=== PATIENT | female | born 1995 | race Caucasian/White ===

== ENCOUNTER 2017-11-07 15:43 | Emergency (ER) | payer BC ==
[~2017-11-07] VITALS: Ht 170.1 cm; Wt 102.1 kg
[~2017-11-07 15:43] MED LIST: 'zithromax250 MG PO; ADVIL100 MG/5 M PO; AUGMENTIN ES-6050 ML PO; BACTRIM; CEPHALEXIN500 M1 PO; CLARITIN5 MG/5 ML PO; HYDROCODONE BIT1 T11 PO; NAPROSYN500 MG PO; PERCOCET 325 MG1 TA7 PO; PREDNISONE10 MG PO; TESSALON PERLE100 M1 PO; TYLENOL650 M1 PO; ULTRAM50 MG PO; VICODIN 5/500 505 MG
[2017-11-07 17:15] LABS: BASO % 0.4 % (0.0-1.0); EOS # 0.4 10*3/uL (0.0-0.4); EOS % 3.1 % (1.0-4.0); HEMATOCRIT 39.9 % (37.0-47.0); HEMOGLOBIN 12.9 g/dl (12.0-16.0); LYMPH # 1.7 10*3/uL (1.3-4.4); LYMPH % 14.9 % (27.0-41.0); MEAN CELL VOLUME 88.9 fl (81.0-99.0); MEAN CORPUSCULAR HGB 28.7 pg (27.0-31.0); MEAN CORPUSCULAR HGB CONC 32.3 g/dl (33.0-37.0); MEAN PLATELET VOLUME 10.9 fl (9.6-12.3); MONO # 0.7 10*3/uL (0.1-1.0); MONO % 6.4 % (3.0-9.0); NEUT # 8.4 10*3/uL (2.3-7.9); NEUT % 74.9 % (47.0-73.0); PLATELET COUNT AUTOMATED 345 10*3/uL (130-400); RED BLOOD COUNT 4.49 10*6/uL (4.10-5.10); RED CELL DISTRI WIDTH 12.9 % (0-14.5); WHITE BLOOD COUNT 11.2 10*3/uL (4.8-10.8)
[2017-11-07 17:29] LABS: ALBUMIN 3.3 gm/dl (3.1-4.5); ALKALINE PHOSPHATASE 112 U/L (45-117); BUN 7 mg/dl (7-24); CHLORIDE 106 mmol/L (98-107); CREATININE 0.53 mg/dL (0.55-1.02); POTASSIUM 3.5 mmol/L (3.5-5.1); SGOT/AST 16 IU/L (3-35); SGPT/ALT 29 U/L (12-78); SODIUM 139 mmol/L (136-145); TOTAL PROTEIN 7.7 gm/dL (6.4-8.2)
[2017-11-07] MEDS ORDERED: PREDNISONE20 M1 PO (19:09)
[2017-11-07] MEDS ORDERED: MUCINEX1200 M1 PO (19:09)
[2017-11-07] MEDS ORDERED: AMOXICILLIN500 M3 PO (19:09)
[2017-11-07] MEDS ORDERED: FLONASE ALLERG9.9 ML NAS (19:09)
== END 2017-11-07 19:25 | disposition home or self-care (01) ==
LOC: ED 15:43
PROVIDERS: Nurse Practitioner Family
DX: H66.93 Otitis media, unspecified, bilateral (principal); J20.9 Acute bronchitis, unspecified; J06.9 Acute upper respiratory infection, unspecified; F17.200 Nicotine dependence, unspecified, uncomplicated

== ENCOUNTER 2018-08-22 15:40 | Emergency (ER) | payer BC ==
[~2018-08-22] VITALS: Ht 172.7 cm; Wt 93.0 kg
[~2018-08-22 15:40] MED LIST changes: +AMOXICILLIN500 M3 PO; +FLONASE ALLERG9.9 ML NAS; +MUCINEX1200 M1 PO; +PREDNISONE20 M1 PO
[2018-08-22] MEDS ORDERED: PREDNISONE10 MG PO (16:22)
== END 2018-08-22 16:30 | disposition home or self-care (01) ==
LOC: ED 15:40
DX: L23.7 Allergic contact dermatitis due to plants, except food (principal); Z79.2 Long term (current) use of antibiotics; Z79.899 Other long term (current) drug therapy

== ENCOUNTER → 2019-04-08 | Outpatient (CLI) | payer BC | END | disposition home or self-care (01) | LOC: US 00:45 | DX: Z34.82 Encounter for supervision of other normal pregnancy, second trimester (principal); Z3A.15 15 weeks gestation of pregnancy ==

== ENCOUNTER → 2019-05-06 | Outpatient (CLI) | payer BC | END | disposition home or self-care (01) | LOC: US 14:40 | DX: O32.1XX0 Maternal care for breech presentation, not applicable or unspecified (principal); Z3A.19 19 weeks gestation of pregnancy ==

== ENCOUNTER → 2019-05-19 | Outpatient (CLI) | payer BC, OTHER | END | disposition home or self-care (01) | LOC: US 09:16 | DX: Z34.02 Encounter for supervision of normal first pregnancy, second trimester (principal); Z3A.20 20 weeks gestation of pregnancy ==

== ENCOUNTER → 2019-07-07 | Outpatient (CLI) | payer BC, OTHER | END | disposition home or self-care (01) | LOC: US 16:37 | DX: M79.89 Other specified soft tissue disorders (principal); Z34.83 Encounter for supervision of other normal pregnancy, third trimester; Z3A.28 28 weeks gestation of pregnancy ==

== ENCOUNTER → 2019-08-02 | Outpatient (CLI) | payer BC, OTHER | END | disposition home or self-care (01) | LOC: US 11:25 | DX: O26.893 Other specified pregnancy related conditions, third trimester (principal); R60.0 Localized edema; Z3A.31 31 weeks gestation of pregnancy ==

== ENCOUNTER 2023-03-28 18:41 | Inpatient (IN) | payer OTHER ==
[~2023-03-28] VITALS: Ht 170.1 cm; Wt 98.0 kg
[2023-03-28 18:53] VITALS: BP 138/78
[2023-03-28] MEDS ORDERED: SODIUM CHLORIDE 0.9% 1,000 ML IV ONE (20:15)
[2023-03-28 20:32] LABS: BASO # 0.1 10*3/uL (0.0-0.1); BASO % 0.4 % (0.0-1.0); EOS # 0.2 10*3/uL (0.0-0.4); EOS % 1.7 % (1.0-4.0); HEMATOCRIT 43.6 % (37.0-47.0); LYMPH # 3.4 10*3/uL (1.3-4.4); LYMPH % 23.4 % (27.0-41.0); MEAN CELL VOLUME 88.1 fl (81.0-99.0); MEAN CORPUSCULAR HGB 29.1 pg (27.0-31.0); MONO # 0.8 10*3/uL (0.1-1.0); MONO % 5.8 % (3.0-9.0); NEUT # 9.9 10*3/uL (2.3-7.9); NEUT % 68.5 % (47.0-73.0); PLATELET COUNT AUTOMATED 375 10*3/uL (130-400); RED BLOOD COUNT 4.95 10*6/uL (4.10-5.10); RED CELL DISTRI WIDTH 12.3 % (0-14.5); WHITE BLOOD COUNT 14.5 10*3/uL (4.8-10.8)
[2023-03-28 20:53] LABS: ALKALINE PHOSPHATASE 122 U/L (46-116); BUN 7 mg/dl (9-23); CHLORIDE 100 mmol/L (98-107); POTASSIUM 3.6 mmol/L (3.4-5.1); SGPT/ALT 11 U/L (5-49); TOTAL PROTEIN 7.5 gm/dL (6.0-8.0)
[2023-03-28 22:20] LABS: BILIRUBIN Negative (Negative); BLOOD Negative (Negative); CLARITY Clear (Clear); COLOR Yellow (Yellow); GLUCOSE 3+ (Negative); KETONE 4+ (Negative); LEUKO ESTERASE Negative (Negative); NITRITE Negative (Negative); PH 5.5 (4.5-8.0); SPECIFIC GRAVITY >= 1.030 (1.001-1.030); UROBILINOGEN 0.2 E.U./dl (0.0-1.0)
[2023-03-28] MEDS ORDERED: INSULIN REGULAR, HUMAN 1 UNIT/0.01 ML IV ONE (22:25)
[2023-03-28 22:40] VITALS: BP 122/77
[2023-03-28 22:52] LABS: EPITHELIAL CELLS 31-40
[2023-03-28 22:53] LABS: RBC 31-40 rbc/hpf (0-2); WBC 16-20 wbc/hpf (0-5)
[2023-03-29] VITALS (7 sets, daily range): BP systolic 105–129; BP diastolic 61–85
[2023-03-29] MEDS ORDERED: INSULIN REGULAR, HUMAN 1 UNIT/0.01 ML IV ONE (01:00)
[2023-03-29] MEDS ORDERED: SODIUM CHLORIDE 0.9% 1,000 ML IV ONE ×2 (01:05→14:33)
[2023-03-29 03:32] LABS: BUN 7 mg/dl (9-23); CHLORIDE 104 mmol/L (98-107); POTASSIUM 3.5 mmol/L (3.4-5.1)
[2023-03-29] MEDS ORDERED: INSULIN REGULAR IN 0.9 % NACL 100 ML IV ONE (04:45)
[2023-03-29] MEDS ORDERED: METFORMIN HYDR500 MG PO (09:42)
[2023-03-29] MEDS ORDERED: POTASSIUM CHLORIDE 20 MEQ TAB PO PRN (10:15)
[2023-03-29] MEDS ORDERED: INSULIN REGULAR IN 0.9 % NACL 100 ML IV SCH (10:15)
[2023-03-29] MEDS ORDERED: POTASSIUM CHLORIDE 20 MEQ/100 ML BAG IV PRN (10:15)
[2023-03-29] MEDS ORDERED: SODIUM CHLORIDE 0.9% 1,000 ML IV SCH (14:15)
[2023-03-29 14:45] LABS: BUN 6 mg/dl (9-23); CHLORIDE 105 mmol/L (98-107); POTASSIUM 3.8 mmol/L (3.4-5.1)
[2023-03-29] MEDS ORDERED: Insulin Glargine, Recombinan 1 UNIT/0.01 ML SC SCH (17:10)
[2023-03-29] MEDS ORDERED: Ceftriaxone Sodium 2 GM in SYRINGE INFUSION 20 ML IV SCH (18:00)
[2023-03-29] MEDS ORDERED: DEXTROSE 5% SALINE 0.45% 1,000 ML IV SCH (18:25)
[2023-03-30] VITALS: BP 99/50
[2023-03-30 04:00] VITALS: BP 97/66
[2023-03-30] MEDS ORDERED: INSULIN REGULAR IN 0.9 % NACL 100 ML IV ONE (04:36)
[2023-03-30 06:31] LABS: BASO % 0.4 % (0.0-1.0); EOS # 0.2 10*3/uL (0.0-0.4); EOS % 2.3 % (1.0-4.0); HEMATOCRIT 39.8 % (37.0-47.0); LYMPH # 2.8 10*3/uL (1.3-4.4); LYMPH % 29.6 % (27.0-41.0); MEAN CELL VOLUME 88.6 fl (81.0-99.0); MEAN CORPUSCULAR HGB CONC 32.7 g/dl (33.0-37.0); MEAN PLATELET VOLUME 11.9 fl (9.6-12.3); MONO # 0.7 10*3/uL (0.1-1.0); MONO % 7.3 % (3.0-9.0); NEUT # 5.6 10*3/uL (2.3-7.9); PLATELET COUNT AUTOMATED 301 10*3/uL (130-400); RED BLOOD COUNT 4.49 10*6/uL (4.10-5.10); RED CELL DISTRI WIDTH 12.6 % (0-14.5); WHITE BLOOD COUNT 9.4 10*3/uL (4.8-10.8)
[2023-03-30 06:45] LABS: BUN 6 mg/dl (9-23); CHLORIDE 110 mmol/L (98-107); POTASSIUM 3.8 mmol/L (3.4-5.1)
[2023-03-30 08:00] VITALS: BP 114/75
[2023-03-30 12:00] VITALS: BP 126/78
[2023-03-30] MEDS ORDERED: DEXTROSE 10 % IN WATER 250 ML IV PRN (15:45)
[2023-03-30] MEDS ORDERED: INSULIN REGULAR, HUMAN 1 UNIT/0.01 ML SC SCH (16:00)
[2023-03-30 20:00] VITALS: BP 110/71
[2023-03-30 22:30] VITALS: BP 124/69
[2023-03-31] VITALS: BP 117/68
[2023-03-31 06:30] LABS: BUN 7 mg/dl (9-23); CHLORIDE 108 mmol/L (98-107); POTASSIUM 3.2 mmol/L (3.4-5.1)
[2023-03-31 08:00] VITALS: BP 112/80
[2023-03-31] MEDS ORDERED: POTASSIUM CHLORIDE 20 MEQ TAB PO ONE (12:05)
[2023-03-31] MEDS ORDERED: GLUCTESTSTRIP DEVI (12:12)
[2023-03-31] MEDS ORDERED: LANTUS SOL100 UNIT/1 SC (12:12)
[2023-03-31] MEDS ORDERED: Lantus SC (12:12)
[2023-03-31] MEDS ORDERED: AUTOPEN1 EACH SQ (12:12)
== END 2023-03-31 13:24 | disposition home or self-care (01) | DRG 420 ==
LOC: ED 18:41 → ICCU 03-29 04:44 → EDHOLD 03-29 04:44 → 4E 03-29 09:02 → ICCU 03-29 14:29
PROVIDERS: Emergency Medicine; ADMIT Internal Medicine; ATTEND Internal Medicine
DX: E11.10 Type 2 diabetes mellitus with ketoacidosis without coma (principal); N39.0 Urinary tract infection, site not specified; B95.4 Other streptococcus as the cause of diseases classified elsewhere; E66.9 Obesity, unspecified; Z68.33 Body mass index [BMI] 33.0-33.9, adult

== ENCOUNTER 2023-09-22 18:29 | Emergency (ER) | payer SELFPAY ==
[~2023-09-22] VITALS: Ht 167.6 cm; Wt 99.8 kg
[~2023-09-22 18:29] MED LIST changes: +AUTOPEN1 EACH SQ; +GLUCTESTSTRIP DEVI; +LANTUS SOL100 UNIT/1 SC; +Lantus SC; +METFORMIN HYDR500 MG PO
[2023-09-22 19:16] LABS: BASO # 0.1 10*3/uL (0.0-0.1); BASO % 0.6 % (0.0-1.0); EOS # 0.3 10*3/uL (0.0-0.4); LYMPH # 2.3 10*3/uL (1.3-4.4); LYMPH % 25.9 % (27.0-41.0); MEAN CORPUSCULAR HGB 28.6 pg (27.0-31.0); MEAN CORPUSCULAR HGB CONC 34.1 g/dl (33.0-37.0); MEAN PLATELET VOLUME 11.7 fl (9.6-12.3); MONO # 0.6 10*3/uL (0.1-1.0); MONO % 6.9 % (3.0-9.0); NEUT # 5.7 10*3/uL (2.3-7.9); NEUT % 63.2 % (47.0-73.0); PLATELET COUNT AUTOMATED 329 10*3/uL (130-400); RED BLOOD COUNT 5.24 10*6/uL (4.10-5.10); RED CELL DISTRI WIDTH 11.9 % (0-14.5)
[2023-09-22 19:45] LABS: BUN 7 mg/dl (9-23); CHLORIDE 98 mmol/L (98-107)
[2023-09-22] MEDS ORDERED: MAGNESIUM OXIDE 400 MG TAB PO ONE (19:55)
[2023-09-22] MEDS ORDERED: SODIUM CHLORIDE 0.9% 1,000 ML IV ONE ×2 (19:55)
[2023-09-22] MEDS ORDERED: INSULIN REGULAR, HUMAN 1 UNIT/0.01 ML IV ONE ×2 (19:55→22:15)
[2023-09-22 20:22] LABS: BILIRUBIN Negative (Negative); BLOOD Negative (Negative); CLARITY Cloudy (Clear); COLOR Yellow (Yellow); GLUCOSE 3+ (Negative); KETONE Trace (Negative); LEUKO ESTERASE Negative (Negative); NITRITE Negative (Negative); SPECIFIC GRAVITY >= 1.030 (1.001-1.030)
[2023-09-22 20:34] LABS: BACTERIA 2+
[2023-09-22] MEDS ORDERED: POTASSIUM CHLORIDE 20 MEQ TAB PO ONE (20:40)
== END 2023-09-22 23:39 | disposition home or self-care (01) ==
LOC: ED 18:29
PROVIDERS: Internal Medicine
DX: E11.65 Type 2 diabetes mellitus with hyperglycemia (principal); E87.8 Other disorders of electrolyte and fluid balance, not elsewhere classified; R53.83 Other fatigue; R11.0 Nausea; Z98.890 Other specified postprocedural states

== ENCOUNTER 2023-10-16 10:43 | Emergency (ER) | payer SELFPAY ==
[~2023-10-16] VITALS: Ht 167.6 cm
[2023-10-16] MEDS ORDERED: POLYMYXIN B/TRI10 M1 OPH (11:08)
[2023-10-16] MEDS ORDERED: AMOX-CLAV 875-1 EACH PO (11:08)
[2023-10-16] MEDS ORDERED: Amoxicillin/Clavulanate Pota 875 MG TAB PO ONE (11:10)
== END 2023-10-16 11:29 | disposition home or self-care (01) ==
LOC: ED 10:43
DX: H66.91 Otitis media, unspecified, right ear (principal); H61.21 Impacted cerumen, right ear; H10.9 Unspecified conjunctivitis; E11.9 Type 2 diabetes mellitus without complications; Z98.890 Other specified postprocedural states